=== PATIENT | female | born 1995 | race Caucasian/White ===

== ENCOUNTER 2019-11-10 05:55 | Inpatient (IN) | payer OTHER, SELFPAY ==
[2019-11-10] VITALS (143 sets, daily range): BP systolic 86–141; BP diastolic 39–96; PULSE 66–123; RESP 16–18; TEMP 36.2–37.1; O2SAT 89–100; BMI 33.8
--- NOTE | 2019-11-10 06:42 | WPDOBADMIT ---
Obstetrics - Admit Note Admission Note: record reviewed. No pertinent additions to the history and/or any subsequent changes in the physical findings that are not consistent with the expected course of the were found. Additions to the history and/or subsequent changes in the physical findings follow. None. cx /-2/arom clear/fhts reassuring
--- NOTE | 2019-11-10 06:43 | PM.IMHP ---
H&P: HPI History of Present Illness Chief complaint: Induction of Labor Narrative: Gabby Ellis is a 24 year old female 001 whose last menstrual period was 02/05/2019, EDC is 11/12/2019, presents at 39 and half weeks gestation for induction of labor. Her has been uncomplicated. She had an abnormal diabetic screen but her 3hour GTT was for over 4 normal. Her cervix is favorable Review of Systems Review of Systems: All systems reviewed & are unremarkable except as noted in HPI and below PMFSH Family History Family History Mother Hypertension Cervical cancer Father Hypertension Grandparent Breast cancer Colon cancer Ovarian cancer Grandparent Colon cancer Grandparent Congestive heart failure Social History Social History Substance use: never Spiritual care concerns: No Meds Home Medications and Allergies Home Medications Medication Instructions Recorded Confirmed Type PNV cmb#95-ferrous fumarate-FA 1 tablet PO DAILY 10/19/19 10/19/19 History [] ergocalciferol (vitamin D2) 50,000 unit PO WEEKLY 10/19/19 10/19/19 History [Vitamin D2] loratadine-pseudoephedrine 1 tablet PO DAILY 10/19/19 10/19/19 History [Claritin-D 24 Hour] Allergies Allergy/AdvReac Type Severity Reaction Status Date / Time No Known Allergies Allergy Verified 10/19/19 13:33 Vital Signs Vital Signs - 24 hr 11/10/19 06:37 Pulse Rate 107 H Blood Pressure 123/77 Exam Const: General: no acute distress Eyes: General: appearance normal, both eyes and all related structures Neck: Neck: supple and no JVD Thyroid: thyroid normal Resp: Effort & Inspection: normal respiratory effort Auscultation: clear to auscultation bilaterally Cardio: Rate: regular rate Rhythm: regular rhythm GI: Inspection: normal to inspection Auscultation: normal bowel sounds Other: Abdomen gravid the uterus is soft : General: Yes other (Cervix is 3/75%/-1/AROM clear. heart tones reassuring) External Female Exam: normal external appearance Skin: General skin exam: no rashes or lesions noted Extrem: General: normal to inspection and no edema Psych: Mental Status: mental status grossly normal Affect: normal affect Assessment and Plan Additional Plan Impression: Term Plan: Medical induction of labor. Spontaneous vaginal delivery is expected. She has an epidural candidate.
[2019-11-10 06:52] LABS: Basophils Percent Auto 0.3 % (0.2-1.2); Eosinophils Absolute Auto 0.1 K/mm3 (0-0.3); Hematocrit 38.5 % (37.0-47.0); Hemoglobin 12.3 g/dL (12.0-15.0); Immature Granulocyte Absolute 0.19 K/mm3 (0.00-0.031); Immature Granulocyte Percent A 1.7 % (0-0.5); Lymphocytes Absolute Auto 1.89 K/mm3 (0.9-3.2); Lymphocytes Percent Auto 16.5 % (18.3-44.2); Mean Corpuscular HGB Conc 31.9 g/dl (32-36); Mean Corpuscular Hemoglobin 29.4 pg (26-34); Mean Corpuscular Volume 91.9 fl (80-100); Monocytes Absolute Auto 0.9 K/mm3 (0.1-0.6); Monocytes Percent Auto 8.2 % (2.6-8.5); Neutrophils Absolute Auto 8.3 K/mm3 (1.3-6.7); Neutrophils Percent Auto 72.3 % (45.5-73.1); Platelet Count Result 194 k/mm3 (150-375); Red Blood Count 4.19 M/mm3 (4.2-5.4); Red Cell Distribution Width 14.3 % (11.5-14.5); White Blood Count 11.5 K/mm3 (4.5-10.0)
[2019-11-10] MEDS: LACTATED RINGERS 1,000 ML 125 ML IV CONT ×3 (07:10→13:33)
[2019-11-10] MEDS: ONDANSETRON INJ 4 MG/2 ML VIAL IV PUSH (08:52)
--- NOTE | 2019-11-10 08:58 | WPDANESEPPF ---
Anes - Initial Pre Proc Eval Date/Time: 11/10/19 08:58 Surgeon: Sanya Vallecillo MD Pre Op Diagnosis: Induction of Labor Patient Data Age: 24 Gender: F Height: Weight: Last Vital Signs Temp 37.1 C 11/10/19 07:40 Pulse 95 11/10/19 08:56 Resp 18 11/10/19 07:40 BP 119/73 11/10/19 08:56 Pulse Ox 100 11/10/19 08:55 Allergies Allergy/AdvReac Type Severity Reaction Status Date / Time No Known Allergies Allergy Verified 10/19/19 13:33 Home Medications Medication Instructions Recorded Confirmed Type PNV cmb#95-ferrous fumarate-FA 1 tablet PO DAILY 10/19/19 10/19/19 History [] ergocalciferol (vitamin D2) 50,000 unit PO WEEKLY 10/19/19 10/19/19 History [Vitamin D2] loratadine-pseudoephedrine 1 tablet PO DAILY 10/19/19 10/19/19 History [Claritin-D 24 Hour] Laboratory Tests 11/10/19 11/10/19 11/10/19 06:38 06:38 06:38 WBC 11.5 K/mm3 H K/mm3 (4.5-10.0) RBC 4.19 M/mm3 L M/mm3 (4.2-5.4) Hgb 12.3 g/dL g/dL (12.0-15.0) Hct 38.5 % % (37.0-47.0) MCV 91.9 fl fl (80-100) MCH 29.4 pg pg (26-34) MCHC 31.9 g/dl L g/dl (32-36) RDW 14.3 % % (11.5-14.5) Plt Count 194 k/mm3 k/mm3 (150-375) MPV 12.0 fl H fl (7.4-10.4) Immature Gran % (Auto) 1.7 % H % (0-0.5) Neut % (Auto) 72.3 % % (45.5-73.1) Lymph % (Auto) 16.5 % L % (18.3-44.2) [place] % (Auto) 8.2 % % (2.6-8.5) Eos % (Auto) 1.0 % % (0-4.4) Baso % (Auto) 0.3 % % (0.2-1.2) Lymph # (Auto) 1.89 K/mm3 K/mm3 (0.9-3.2) [place] # (Auto) 0.9 K/mm3 H K/mm3 (0.1-0.6) Eos # (Auto) 0.1 K/mm3 K/mm3 (0-0.3) Baso # (Auto) 0.0 K/mm3 K/mm3 (0.0-0.1) Abs Immat Gran (auto) 0.19 K/mm3 H K/mm3 (0.00-0.031) Absolute Neuts (auto) 8.3 K/mm3 H K/mm3 (1.3-6.7) Absolute Nucleated RBC 0.0 K/mm3 K/mm3 (0.0-0.012) Nucleated RBC % 0.0 % % (0.0-0.2) RPR Pending Blood Type A Positive Antibody Screen Negative Patient hx anesthesia problems: none Family hx anesthesia problems: none PMFSH Family History Family History Mother Hypertension Cervical cancer Father Hypertension Grandparent Breast cancer Colon cancer Ovarian cancer Grandparent Colon cancer Grandparent Congestive heart failure Social History Social History Smoking status: Never smoker Substance use: never Spiritual care concerns: No Anes - Eval Final PreProcedure Day of Procedure 11/10/19 08:58 Patient weight: obese Neurological: alert and oriented ASA classification: II Emergent: no Anesthetic plan: proceed Anesthesia type and monitoring: regional epidural and standard monitoring Informed Consent: The patient's anesthetic plan and its attendant risks and benefits were discussed with the patient/family/POA. Questions were solicited and answers provided to the satisfaction of the patient/family/POA.
--- NOTE | 2019-11-10 11:52 | P.PNOB_ITS ---
OB - PN: Subj Subjective Date/time seen: 11/10/19 11:52 Interval history: cx 7.5/100/-1 fhts ok OB - PN: Obj Data Labs CBC & Chem 7: 11/10/19 06:38 Labs: Laboratory Results - last 24 hr 11/10/19 11/10/19 06:38 06:38 WBC 11.5 H RBC 4.19 L Hgb 12.3 Hct 38.5 MCV 91.9 MCH 29.4 MCHC 31.9 L RDW 14.3 Plt Count 194 MPV 12.0 H Immature Gran % (Auto) 1.7 H Neut % (Auto) 72.3 Lymph % (Auto) 16.5 L [place] % (Auto) 8.2 Eos % (Auto) 1.0 Baso % (Auto) 0.3 Lymph # (Auto) 1.89 [place] # (Auto) 0.9 H Eos # (Auto) 0.1 Baso # (Auto) 0.0 Abs Immat Gran (auto) 0.19 H Absolute Neuts (auto) 8.3 H Absolute Nucleated RBC 0.0 Nucleated RBC % 0.0 Blood Type A Positive Antibody Screen Negative OB - PN A/P Time Spent With Patient Time: Total time spent is greater than 50% in coordination of care (as documented) at patient's floor/unit and/or counseling patient:
[2019-11-10] MEDS: METOCLOPRAMIDE HCL INJ 10 MG/2 ML VIAL IV PUSH (12:10)
--- NOTE | 2019-11-10 13:47 | PM.OBPRVD ---
OB - Delivery Note Procedure Delivery date: 11/10/19 Induction method: AROM Delivery augmentation: pitocin Delivery monitor: external FHT Route of delivery: Episiotomy description: None Laceration description: None Specimen: No Estimated blood loss (mL): 57 Anesthesia type: Epidural Disposition: floor [place] Baby Date of : 11/10/19 Time of : 13:40 Weeks of gestation at delivery: 39 Infant gender: Male presentation: vertex position: Right Occiput Anterior Placenta delivery description: Spontaneous cord vessel description: 3 Vessels score one minute: 9 score five minutes: 9
[2019-11-10] MEDS: IBUPROFEN 600 MG TABLET PO (15:40)
[2019-11-10] MEDS: WITCH HAZEL 40 PADS 1 PAD TOPICAL (15:41)
[2019-11-10] MEDS: ACETAMINOPHEN 325 MG TABLET 650 MG PO (19:07)
[2019-11-11] MEDS: IBUPROFEN 600 MG TABLET PO ×3 (00:26→16:33)
[2019-11-11 05:34] LABS: Hematocrit 34.3 % (37.0-47.0)
--- NOTE | 2019-11-11 07:01 | PM.OBPNVD ---
OB - PN: Subj Subjective Date/time seen: 11/11/19 07:01 Interval history: cx 7.5/100/-1 fhts ok Patient comments: no complaints and pain well controlled baby status: doing well and nursing well OB - PN: Obj Data Labs CBC & Chem 7: 11/11/19 04:42 Labs: Laboratory Results - last 24 hr 11/10/19 11/11/19 06:38 04:42 Hgb 11.0 L Hct 34.3 L Blood Type A Positive Antibody Screen Negative OB - PN A/P Plan day: 1 Plan: routine care Time Spent With Patient Time: Total time spent is greater than 50% in coordination of care (as documented) at patient's floor/unit and/or counseling patient: Time with patient: less than 15 minutes Review of Systems Review of Systems: All systems reviewed & are unremarkable except as noted in HPI and below Exam Const: General: no acute distress Eyes: General: appearance normal, both eyes and all related structures Neck: Neck: supple and no JVD Thyroid: thyroid normal Resp: Effort & Inspection: normal respiratory effort Auscultation: clear to auscultation bilaterally Cardio: Rate: regular rate Rhythm: regular rhythm GI: Inspection: non-distended GI Palp: Yes Soft to palpation, No Tenderness to palpation present (GI) and No Guarding due to palpation present (GI) Auscultation: normal bowel sounds : General: Yes bladder normal to palpation External Female Exam: normal external appearance Speculum Exam - Vagina: normal vaginal discharge and No vaginal bleeding Speculum Exam - Cervix: nontender Bimanual exam- vagina & uterus: bladder normal to palpation and No Cervical tenderness present OB/external & speculum: No vaginal bleeding Skin: General skin exam: no rashes or lesions noted Extrem: General: normal to inspection and no edema Psych: Mental Status: mental status grossly normal Affect: normal affect
[2019-11-11 07:55] VITALS: BP 118/61; PULSE 86; RESP 16; TEMP 37.3; O2SAT 98
[2019-11-11] MEDS: MULTIVIT/MIN/PREN/FOL AC/IRON TABLET 1 TAB PO (10:22)
[2019-11-11 10:48] LABS: Rapid Plasma Reagin Non-Reactive (NonReactive)
--- NOTE | 2019-11-11 11:00 | PC.NURSE ---
Consulted with patient, mother states is sleepy and has difficulties waking and latching. Reviewed infant feeding cues, frequencies, duration of feedings, feeding elimination flow sheet, and signs of adequate intake. Demonstrated stimulation techniques to wake infant for feeding. Assisted with to breast. Reviewed positioning/alignment in cross cradle, holding breast in U hold and guided asymmetrical latch on. was unable to latch correctly. Infant keeps tongue up and does not drop to allow correct latch. Discussed to allow infant to suck on a clean finger for a few minutes before latching to assist with tongue training to drop tongue. Several attempts made before was able to latch correctly. Once on, nursed eagerly, with steady draws and frequent swallowing noted. Reviewed signs of a correct latch, effective nursing and suck swallow ratio. Infant was able to maintain latch without discomfort to mother. Nipple care reviewed. Instructed to stimulate to keep awake and nursing effectively. Instructed mother to call out for RN assistance if she is unable to latch for feeding or she has discomfort with nursing. Instructed feeding should be initiated three hours from start of last feeding or if feeding cues are noted before. Mother voiced understanding of information shared.
--- NOTE | 2019-11-11 14:10 | PC.NURSE ---
Mother called out for observation to make sure latch was correct. Consulted with patient, mother states is sleepy and has difficulties waking and latching. Mother is able to independently latch with appropriate positioning/alignment in football. Once on, nursed eagerly, with steady draws and frequent swallowing noted. Reviewed signs of a correct latch, effective nursing and suck swallow ratio. was able to maintain latch without discomfort to mother. Nipple care reviewed. Instructed to stimulate to keep awake and nursing effectively. Instructed mother to call out for RN assistance if she is unable to latch infant for feeding or she has discomfort with nursing. Instructed feeding should be initiated three hours from start of last feeding or if feeding cues are noted before. Mother voiced understanding of information shared.
[2019-11-11 20:10] VITALS: BP 127/80; PULSE 77; PULSE 86; RESP 16; TEMP 36.8; O2SAT 98
--- NOTE | 2019-11-12 07:31 | PM.OBPNVD ---
OB - PN: Subj Subjective Date/time seen: 11/12/19 07:31 Patient comments: no complaints and pain well controlled baby status: doing well and nursing well OB - PN: Obj Data Labs CBC & Chem 7: 11/11/19 04:42 Labs: Laboratory Results - last 24 hr 11/10/19 06:38 RPR Non-reactive OB - PN A/P Plan day: 2 Plan: routine care, discharge home and follow up 6 weeks Time Spent With Patient Time: Total time spent is greater than 50% in coordination of care (as documented) at patient's floor/unit and/or counseling patient: Time with patient: less than 15 minutes Review of Systems Review of Systems: All systems reviewed & are unremarkable except as noted in HPI and below Exam GI: Inspection: normal to inspection Percussion: Yes normal to percussion Auscultation: normal bowel sounds Other: fundus firm : Bimanual exam- vagina & uterus: other (flow light)
--- NOTE | 2019-11-12 07:32 | P.DS_ITS ---
DS: Diagnosis Admitting Diagnosis Admitting Diagnosis: term DS: Summary Time Spent with Patient Time attestation: Total time spent providing and/or coordinating discharge services: Exam Const: General: no acute distress Eyes: General: appearance normal, both eyes and all related structures Neck: Neck: supple and no JVD Thyroid: thyroid normal Resp: Effort & Inspection: normal respiratory effort Auscultation: clear to auscultation bilaterally Cardio: Rate: regular rate Rhythm: regular rhythm GI: Inspection: non-distended GI Palp: Yes Soft to palpation, No Tenderness to palpation present (GI) and No Guarding due to palpation present (GI) A uscultation: normal bowel sounds : General: Yes bladder normal to palpation External Female Exam: normal external appearance Speculum Exam - Vagina: normal vaginal discharge and No vaginal bleeding Speculum Exam - Cervix: nontender Bimanual exam- vagina & uterus: bladder normal to palpation and No Cervical tenderness present OB/external & speculum: No vaginal bleeding Skin: General skin exam: no rashes or lesions noted Extrem: General: normal to inspection and no edema Psych: Mental Status: mental status grossly normal Affect: normal affect DS: Data Data Completed and Pending Labs on day of discharge: Labs from last 24 hours 11/10/19 06:38 RPR Non-reactive Discharge Plan Discharge Attending physician on discharge: Sanya Vallecillo Discharging Clinician: Sanya Vallecillo Patient Disposition: Home, Self-Care Activity: may shower, no straining, may drive after 2 weeks and pelvic rest Diet: heart healthy Wound Care Instructions: follow printed instructions Patient Instructions: Antibiotic Form Stand Alone Forms: General Discharge Information Follow-up/Referrals: Sanya Vallecillo MD [Physician] - Discharge Medications: Continued PNV cmb#95-ferrous fumarate-FA [] 28 mg iron- 800 mcg Tablet 1 tablet PO DAILY RF: 0 loratadine-pseudoephedrine [Claritin-D 24 Hour] 10-240 mg Tablet Extended Release 24 Hr 1 tablet PO DAILY RF: 0 ergocalciferol (vitamin D2) [Vitamin D2] 1,250 mcg (50,000 unit) Capsule 50,000 unit PO WEEKLY RF: 0 Date of admission: 11/10/19 05:55 Primary Care Provider: UNKNOWN,DOCTOR Admitting Provider: Sanya Vallecillo Attending physician on admission: Sanya Vallecillo
[2019-11-12 08:00] VITALS: BP 129/67; PULSE 98; RESP 16; TEMP 36.8
[2019-11-14 11:09] VITALS: BP 126/78; PULSE 91; RESP 16; TEMP 37.2
== END 2019-11-12 12:15 | disposition home or self-care (01) | DRG 807 ==
LOC: ANHLDR 06:38 → ANHOB2 16:58
PROVIDERS: Admitting Provider Obstetrics & Gynecology; Visit Provider Obstetrics & Gynecology
DX: O80 Encounter for full-term uncomplicated delivery (principal); Z37.0 Single live birth; Z23 Encounter for immunization; Z3A.39 39 weeks gestation of pregnancy
CPT/HCPCS: 36415; 85014; 85018; 85025; 86592; 86850; 86900; 86901; A9270; J2405; J2590; J2765; J2795; J7120

== ENCOUNTER 2021-06-16 04:33 | Inpatient (IN) | payer OTHER, SELFPAY ==
[2021-06-16] VITALS (77 sets, daily range): BP systolic 81–150; BP diastolic 30–91; PULSE 66–118; RESP 14–16; TEMP 36.3–36.7; O2SAT 96–100; BMI 35.8
--- NOTE | 2021-06-16 04:33 | LDADM ---
This patient, Gabby Ellis, was admitted to Labor/Delivery/Recovery 106 on 06/16/21 at 04:33. Plans for labor, pain management and were discussed with patient. Patient/family oriented to hospital policies and general routines including ID bracelet, bed and alarms, visiting hours, pain management, procedures, bathroom and other care routines, personal items, smoking policy, room service/diet and guest tray routines, infant security routines, and visiting hours. Patient/Family are encouraged to report perceived risks to care and to ask questions if they do not understand what they are told or what they should do. See OBIX for further documentation.
[2021-06-16] MEDS: LACTATED RINGERS 1,000 ML 125 ML IV CONT (08:53)
[2021-06-16 08:54] LABS: Basophils Percent Auto 0.3 % (0.2-1.2); Eosinophils Absolute Auto 0.1 K/mm3 (0-0.3); Eosinophils Percent Auto 0.7 % (0-4.4); Hematocrit 37.6 % (37.0-47.0); Hemoglobin 12.1 g/dL (12.0-15.0); Immature Granulocyte Absolute 0.07 K/mm3 (0.00-0.031); Immature Granulocyte Percent A 0.6 % (0-0.5); Lymphocytes Absolute Auto 1.29 K/mm3 (0.9-3.2); Lymphocytes Percent Auto 11.2 % (18.3-44.2); Mean Corpuscular HGB Conc 32.2 g/dl (32-36); Mean Corpuscular Hemoglobin 29.6 pg (26-34); Mean Corpuscular Volume 91.9 fl (80-100); Mean Platelet Volume 11.5 fl (7.4-10.4); Monocytes Absolute Auto 0.8 K/mm3 (0.1-0.6); Neutrophils Absolute Auto 9.2 K/mm3 (1.3-6.7); Neutrophils Percent Auto 80.2 % (45.5-73.1); Platelet Count Result 204 k/mm3 (150-375); Red Blood Count 4.09 M/mm3 (4.2-5.4); Red Cell Distribution Width 13.8 % (11.5-14.5); White Blood Count 11.5 K/mm3 (4.5-10.0)
--- NOTE | 2021-06-16 09:00 | WPDHPUPDATE1 ---
History and Physical Update Update Date/Time: 06/16/21 09:00 25 yo at 39w2d who presents in labor. Pt reports regular contractions that started yesterday. She denies any vaginal bleeding or leakage of fluid. She endorses good FM. Her pregnanacy has been uncomplicated thus far. History and Physical has been reviewed, including an updated exam of the patient. There are NO changes in the patient's condition. Risks, benefits, and alternatives have been discussed and questions answered. Patient agrees to proceed with procedure. A/P: 25 yo at 39w2d admit to L&D routine admission orders GBS neg Rh+ cvx changed from 2 to 4cm FHT cat 1 regular contractions on toco continuous EFM will plan for AROM for augmentation
[2021-06-16] MEDS: ONDANSETRON INJ 4 MG/2 ML VIAL IV PUSH (09:17)
[2021-06-16] MEDS: ePHEDrine sulfate INJ 50 MG/ML AMPUL IV PUSH (10:05)
[2021-06-16] MEDS: METOCLOPRAMIDE HCL INJ 10 MG/2 ML VIAL IV PUSH (10:09)
[2021-06-16] MEDS: OXYTOCIN 30 UNITS/NS 500 ML 30 UNITS/500 ML BAG IV CONT (11:01)
--- NOTE | 2021-06-16 13:03 | P.PCNOB_ITS ---
OB - Delivery Note Procedure Procedure: Patient pushed for a spontaneous vaginal delivery. A nuchal cord x2 and body cord were noted. The fetus was delivered through and reduced on the perineum. The fetus was delivered atraumatically and placed on the maternal abdomen. The cord was clamped and cut after 1 minute of life. The cord was double clamped and cut and a segment of cord was collected for cord gases. Cord blood was collected for blood type and Coomb's testing. The placenta delivered spontaneously and was noted to be intact. The perineum was inspected and there were no lacerations noted. The uterus was firm and good hemostasis was noted. The patient and fetus were stable in the delivery room. Intrapartal events: None Induction method: none Delivery augmentation: pitocin Delivery monitor: external FHT Route of delivery: Episiotomy description: None Laceration Description: None Specimen: No Quantitative Blood Loss (ml): 150 Anesthesia type: Epidural Disposition: floor () Complications: No immediate complications [place] Baby Date of : 06/16/21 Time of : 12:55 Weeks of gestation at delivery: 39 Infant gender: Male Weight (pounds): 8 Weight (ounces): 8 presentation: vertex position: Left Occiput Anterior Placenta delivery description: Spontaneous cord vessel description: 3 Vessels, Nuchal Cord (x2) and Around Body x1 score one minute: 8 score five minutes: 9
--- NOTE | 2021-06-16 19:31 | PC.NURSE ---
1706-Patient transferred to post room #285 via wheelchair. Support person present. Oriented to unit, room, information board, rooming in, admission packet and security measures. Patient verbalizes understanding.
[2021-06-16] MEDS: IBUPROFEN 600 MG TABLET PO (19:40)
[2021-06-17 05:30] VITALS: BP 112/69; PULSE 85; RESP 15; TEMP 36.6; O2SAT 98
[2021-06-17 05:34] LABS: Hematocrit 33.9 % (37.0-47.0); Hemoglobin 11.1 g/dL (12.0-15.0)
[2021-06-17 08:15] VITALS: BP 113/71; PULSE 82; RESP 16; TEMP 37; O2SAT 99
--- NOTE | 2021-06-17 08:24 | PM.OBDSVD ---
DS: Admitting Diagnosis Admitting Diagnosis intrauterine at term labor OB - DS: Summary OB Procedures : None OB Procedures Intrapartum: Spontaneous Vag Delivery OB Procedures: : None Status at Discharge Functional status at discharge: independent ambulation Overall status at discharge: patient is back to baseline Time Spent with Patient Time attestation: Total time spent providing and/or coordinating discharge services: Time spent: Less than 30 minutes Exam Const: General: comfortable and no acute distress Resp: Effort & Inspection: normal respiratory effort Auscultation: clear to auscultation bilaterally Cardio: Rate: regular rate GI: GI Palp: Yes Soft to palpation Auscultation: normal bowel sounds Other: Fundus firm below umbilicus Psych: Appearance: grossly normal Mental Status: mental status grossly normal Affect: normal affect DS: Data Data Completed and Pending Labs on day of discharge: Labs from last 24 hours 06/17/21 06/16/21 06/16/21 05:28 08:44 08:44 WBC RBC Hgb 11.1 L Hct 33.9 L MCV MCH MCHC RDW Plt Count MPV Immature Gran % (Auto) Neut % (Auto) Lymph % (Auto) [place] % (Auto) Eos % (Auto) Baso % (Auto) Lymph # (Auto) [place] # (Auto) Eos # (Auto) Baso # (Auto) Abs Immat Gran (auto) Absolute Neuts (auto) Absolute Nucleated RBC Nucleated RBC % RPR Pending Blood Type A Positive Antibody Screen Negative 06/16/21 08:44 WBC 11.5 H RBC 4.09 L Hgb 12.1 Hct 37.6 MCV 91.9 MCH 29.6 MCHC 32.2 RDW 13.8 Plt Count 204 MPV 11.5 H Immature Gran % (Auto) 0.6 H Neut % (Auto) 80.2 H Lymph % (Auto) 11.2 L [place] % (Auto) 7.0 Eos % (Auto) 0.7 Baso % (Auto) 0.3 Lymph # (Auto) 1.29 [place] # (Auto) 0.8 H Eos # (Auto) 0.1 Baso # (Auto) 0.0 Abs Immat Gran (auto) 0.07 H Absolute Neuts (auto) 9.2 H Absolute Nucleated RBC 0.0 Nucleated RBC % 0.0 RPR Blood Type Antibody Screen Discharge Plan Discharge Discharging Clinician: sanjeev Patient Disposition: Home, Self-Care Activity: as tolerated and pelvic rest Diet: regular Patient Instructions: Antibiotic Form, Vaginal Delivery (DC) Stand Alone Forms: General Discharge Information Follow-up/Referrals: Sanya Vallecillo MD [Physician] - 6 Weeks Discharge Medications: New ibuprofen 600 mg Tablet 600 mg PO Q6H PRN (Reason: Cramping) Qty: 30 RF: 0 acetaminophen [Mapap (acetaminophen)] 325 mg Tablet 650 mg PO Q6H PRN (Reason: Mild Pain (1-3) Or Headache) Qty: 30 RF: 0 Continued PNV cmb#95-ferrous fumarate-FA [] 28 mg iron- 800 mcg Tablet 1 tablet PO DAILY RF: 0 loratadine-pseudoephedrine [Claritin-D 24 Hour] 10-240 mg Tablet Extended Release 24 Hr 1 tablet PO DAILY RF: 0 escitalopram oxalate 20 mg Tablet 20 mg PO DAILY RF: 0 Date of admission: 06/16/21 04:33 Primary Care Provider: PHYSICIAN,JEWEL HOLE GAUGER Admitting Provider: Sanya Vallecillo Attending physician on admission: Sanya Vallecillo Condition: Stable
--- NOTE | 2021-06-17 09:30 | PC.NURSE ---
Mother called out for assist with feeding, reporting tenderness to right more than left with feedings. Infant is unable to freely thrust tongue past gum ridge and top lip frenulum is thick, is able to flange both lips. Skin is intact on both nipples, redness noted and no bruising. Nipple care reviewed of lanolin after feedings, warm compresses as needed. Discussed how the tongue frenulum may impact latch. Tongue frenulum is thin advised it may stretch within a few days. Reviewed infant feeding cues, frequencies, duration of feedings, feeding elimination flow sheet, and signs of adequate intake. Demonstrated stimulation techniques to wake infant for feeding. Assisted with infant to breast. Reviewed positioning/alignment in cross cradle, holding breast in ?U? hold and guided asymmetrical latch on. Discussed rational for each. Infant able to latch correctly. Reviewed signs of a correct latch, effective nursing and suck swallow ratio. nursed eagerly, with steady draws and frequent swallowing noted. Reviewed the difference of effective vs ineffective nursing. Suggested mother stimulate while feeding to increase stimulation, increase intake and to assist with maintaining deep latch. would slip to shallow latch, mother reports tenderness and clicking noted. Demonstrated how to adjust latch more deeply while feeding. Mother reports she can feel change in latch and has no tenderness and less clicking noted. Advised to hold breast during entire feeding to keep deep latch. Mother questions if she should have the tongue and lip clipped . Advised to discuss with her ICP at fist visit, if mother is unable to feed without discomfort to call ICP and not wait for 1 week visit.
[2021-06-17] MEDS: MULTIVIT/MIN/PREN/FOL AC/IRON TABLET 1 TAB PO (09:47)
[2021-06-17] MEDS: DOCUSATE SODIUM 100 MG CAPSULE PO (09:47)
[2021-06-17] MEDS: ESCITALOPRAM OXALATE 10 MG TABLET 20 MG PO (09:47)
[2021-06-17] MEDS: IBUPROFEN 600 MG TABLET PO ×2 (09:48→17:43)
[2021-06-17 11:54] VITALS: BP 119/61; PULSE 100; RESP 16; TEMP 37.2; O2SAT 98
[2021-06-17 19:45] VITALS: BP 137/90; PULSE 80; RESP 16; TEMP 37.1; O2SAT 98
[2021-06-18] MEDS: IBUPROFEN 600 MG TABLET PO (03:35)
[2021-06-18 07:55] VITALS: BP 129/84; PULSE 76; RESP 18; TEMP 37.3; O2SAT 98
--- NOTE | 2021-06-18 07:57 | P.DS_ITS ---
DS: Admitting Diagnosis Admitting Diagnosis term iup DS: Summary Hospital Course Hospital Course: Patient was admitted in active labor and underwent spontaneous vaginal delivery. Her course was unremarkable she remained afebrile. She was up, voiding without difficulty, ambulating, generally without complaints. Time Spent with Patient Time attestation: Total time spent providing and/or coordinating discharge services: Exam Const: General: no acute distress Eyes: General: appearance normal, both eyes and all related structures Neck: Neck: supple and no JVD Thyroid: thyroid normal Resp: Effort & Inspection: normal respiratory effort Auscultation: clear to auscultation bilaterally Cardio: Rate: regular rate Rhythm: regular rhythm GI: Inspection: non-distended GI Palp: Yes Soft to palpation, No Tenderness to palpation present (GI) and No Guarding due to palpation present (GI) Auscultation: normal bowel sounds : General: Yes bladder normal to palpation External Female Exam: normal external appearance Speculum Exam - Vagina: normal vaginal discharge and No vaginal bleeding Speculum Exam - Cervix: nontender Bimanual exam- vagina & uterus: bladder normal to palpation and No Cervical tenderness present OB/external & speculum: No vaginal bleeding Skin: General skin exam: no rashes or lesions noted Extrem: General: normal to inspection and no edema Psych: Mental Status: mental status grossly normal Affect: normal affect Discharge Plan Discharge Discharging Clinician: sanjeev Patient Disposition: Home, Self-Care Activity: as tolerated and pelvic rest Diet: regular Patient Instructions: Antibiotic Form, Vaginal Delivery (DC) Stand Alone Forms: General Discharge Information Follow-up/Referrals: Sanya Vallecillo MD [Physician] - 6 Weeks Discharge Medications: New acetaminophen [Mapap (acetaminophen)] 325 mg Tablet 650 mg PO Q6H PRN (Reason: Mild Pain (1-3) Or Headache) Qty: 30 RF: 0 ibuprofen 600 mg Tablet 600 mg PO Q6H PRN (Reason: Cramping) Qty: 30 RF: 0 Continued PNV cmb#95-ferrous fumarate-FA [] 28 mg iron- 800 mcg Tablet 1 tablet PO DAILY RF: 0 loratadine-pseudoephedrine [Claritin-D 24 Hour] 10-240 mg Tablet Extended Release 24 Hr 1 tablet PO DAILY RF: 0 escitalopram oxalate 20 mg Tablet 20 mg PO DAILY RF: 0 Date of admission: 06/16/21 04:33 Primary Care Provider: PHYSICIAN,SWE[employer] Admitting Provider: Sanya Vallecillo Attending physician on admission: Sanya Vallecillo Condition: Stable
--- NOTE | 2021-06-18 07:58 | PM.OBPNVD ---
OB - PN: Subj Subjective Date/time seen: 06/18/21 07:58 Patient comments: no complaints and pain well controlled baby status: doing well and nursing well OB - PN: Obj Data Labs CBC & Chem 7: 06/17/21 05:28 OB - PN A/P Plan day: 2 Plan: routine care, discharge home and follow up 6 weeks Time Spent With Patient Time: Total time spent is greater than 50% in coordination of care (as documented) at patient's floor/unit and/or counseling patient: Time with patient: less than 15 minutes Review of Systems Review of Systems: All systems reviewed & are unremarkable except as noted in HPI and below Exam Const: General: no acute distress Eyes: General: appearance normal, both eyes and all related structures Neck: Neck: supple and no JVD Thyroid: thyroid normal Resp: Effort & Inspection: normal respiratory effort Auscultation: clear to auscultation bilaterally Cardio: Rate: regular rate Rhythm: regular rhythm GI: Inspection: non-distended GI Palp: Yes Soft to palpation, No Tenderness to palpation present (GI) and No Guarding due to palpation present (GI) Auscultation: normal bowel sounds : General: Yes bladder normal to palpation External Female Exam: normal external appearance Speculum Exam - Vagina: normal vaginal discharge and No vaginal bleeding Speculum Exam - Cervix: nontender Bimanual exam- vagina & uterus: bladder normal to palpation and No Cervical tenderness present OB/external & speculum: No vaginal bleeding Skin: General skin exam: no rashes or lesions noted Extrem: General: normal to inspection and no edema Psych: Mental Status: mental status grossly normal Affect: normal affect
[2021-06-18] MEDS: DOCUSATE SODIUM 100 MG CAPSULE PO (08:47)
[2021-06-18] MEDS: MULTIVIT/MIN/PREN/FOL AC/IRON TABLET 1 TAB PO (08:47)
[2021-06-18] MEDS: ACETAMINOPHEN 325 MG TABLET 650 MG PO (08:47)
--- NOTE | 2021-06-18 10:00 | PC.NURSE ---
Consult with pt., mother reports has been eagerly latching most feedings. Mother has less tenderness with previous assist with deep latch and continues to latch deeply. Mother reports she will contact her ICP today for assist with tongue and lip tie evaluation. Discussed to keep accurate records of feeding/elimination and offer EBM as needed. Observed mother is able to independently latch infant with appropriate positioning/alignment. She denies any nipple discomfort, is feeding as required and waking to feed if needed. has had at least 8 effective feedings in the past 24 hours, and is currently meeting outcomes for weight, output, jaundice and feeding frequencies. Mother states she feels confident to continue effective at home. Reviewed transition to breast milk, signs of adequate intake, and engorgement/relief. Instructed to call ICP if intake/output less than required. Reviewed regular medications mother is taking. Information provided per [facility]. Reviewed community resources on the [facility] website and in the Mom/Baby guide. Information on outpatient services provided. Mother has no further questions at this time.
[2021-06-18 10:30] LABS: Rapid Plasma Reagin Non-Reactive (NonReactive)
[2021-06-19 08:44] VITALS: BP 135/87; PULSE 79; RESP 20; TEMP 36.9; O2SAT 99
== END 2021-06-18 16:10 | disposition home or self-care (01) | DRG 807 ==
LOC: ANHOB2 06-18 10:29 → ANHLDR 06-20 08:42 → ANHOB2 06-20 08:42
PROVIDERS: Admitting Provider Student in an Organized Health Care Education/Training Program; Visit Provider Student in an Organized Health Care Education/Training Program
DX: O69.81X0 Labor and delivery complicated by cord around neck, without compression, not applicable or unspecified (principal); Z37.0 Single live birth; Z3A.39 39 weeks gestation of pregnancy; O69.82X0 Labor and delivery complicated by other cord entanglement, without compression, not applicable or unspecified; O77.0 Labor and delivery complicated by meconium in amniotic fluid
CPT/HCPCS: 36415; 85014; 85018; 85025; 86592; 86850; 86900; 86901; A9270; J2405; J2590; J2765; J2795; J7120

== ENCOUNTER 2021-10-04 16:02 | Emergency (ER) | payer OTHER, SELFPAY ==
[2021-10-04 16:31] VITALS: BP 147/94; PULSE 100; RESP 18; TEMP 36.6; O2SAT 99
[2021-10-04 17:15] VITALS: BP 147/94; PULSE 79; RESP 18; TEMP 36.6; O2SAT 100
--- NOTE | 2021-10-04 17:38 | ED.GENADULT ---
HPI - General Adult General Chief complaint: Eye Problems Stated complaint: eye pain Time Seen by Provider: 10/04/21 17:17 Source: patient Mode of arrival: ambulatory Limitations: no limitations History of Present Illness HPI narrative: Patient presents for evaluation of right eye irritation, redness, tearing, pain since last night. She indicates she was attempting to remove a contact when she believes she scratched her right eye. She was able to remove the contact successfully. She has some photophobia. She reports blurred vision but denies any visual disturbance otherwise. She is not diabetic. No additional complaints or concerns. Related Data Home Medications Medication Instructions Recorded Confirmed PNV cmb#95-ferrous fumarate-FA 1 tablet PO DAILY 10/19/19 06/03/21 [] loratadine-pseudoephedrine 1 tablet PO DAILY 10/19/19 06/03/21 [Claritin-D 24 Hour] escitalopram oxalate 20 mg PO DAILY 06/03/21 06/03/21 Allergies Allergy/AdvReac Type Severity Reaction Status Date / Time No Known Allergies Allergy Verified 11/15/19 13:52 Review of Systems Review of Systems: CONSTITUTIONAL: Denies fever, chills, or sweats. EYES: Reports right eye irritation, pain and tearing ENT: Denies rhinorrhea, congestion, sore throat, or otalgia. CARDIOVASCULAR: Denies chest pain, palpitations, or edema. RESPIRATORY: Denies cough or dyspnea. GASTROINTESTINAL: Denies abdominal pain, nausea, vomiting, or diarrhea. GENITOURINARY: Denies dysuria or hematuria. SKIN: Denies rash or itching. MUSCULOSKELETAL: Denies back pain, joint pain, or myalgia. NEUROLOGIC: Denies headache, numbness, dizziness, or weakness. PSYCHIATRIC: Denies anxiety or depression. [facility] Past Medical History Medical History (Updated 10/04/21 @ 18:22 by ENRICO Garcia, BENJAMIN) No pertinent past medical history Surgical History Surgical History No pertinent past surgical history Family History Family History Mother Hypertension Cervical cancer Father Hypertension Grandparent Breast cancer Colon cancer Ovarian cancer Grandparent Colon cancer Grandparent Congestive heart failure Social History Social History Smoking status: Never smoker Substance use: never Gender identity (if verbalized by the patient): Female Spiritual care concerns: No Exam Narrative: GENERAL: Well-appearing, well-nourished, and in no acute distress. HEAD: Normocephalic, atraumatic. EYES: PERRLA and EOMI. Right conjunctival injection with associated tearing. Evaluated with Wood's Lamp-dye uptake noted in right eye at 4-5 o'clock position overlying the iris ENT: Nares clear, no rhinorrhea or epistaxis. Mucous membranes moist. Oropharynx without tonsillar hypertrophy exudate or other lesions. Bilateral TMs pearly valencia nonbulging NECK: Supple. No adenopathy or masses. No carotid bruits or JVD CHEST: Clear to auscultation. No respiratory distress. No wheezes rales or rhonchi HEART: Regular rate and rhythm. No murmur heard. Normal peripheral pulses. ABDOMEN: Soft, nontender, nondistended, normal active bowel sounds. EXTREMITIES: Normal range of motion. No edema. SKIN: Warm, dry, no rash. NEURO: No focal deficits. Alert and oriented x3. PSYCH: Normal mood and affect. Course Course Emergency Course: This is a 26-year-old female who presented with complaints of right eye irritation after scratching her eye last night. She was evaluated with Cerna lamp and there was an area of dye uptake consistent with coreal abrasion. There was no retained foreign body visualized and patient indicates that she did remove the entire contact last night successfully. We will discharge her with a prescription for erythromycin. Due to the holiday she is unsure which pharmacy is still open. We
== END 2021-10-04 18:38 | disposition home or self-care (01) ==
PROVIDERS: Emergency Provider Nurse Practitioner
DX: S05.01XA Injury of conjunctiva and corneal abrasion without foreign body, right eye, initial encounter (principal); X58.XXXA Exposure to other specified factors, initial encounter
CPT/HCPCS: 99283

== ENCOUNTER 2022-12-05 07:42 | Outpatient (CLI) | payer OTHER, SELFPAY ==
--- NOTE | ~2022-12-05 | US_ITS ---
US abdomen limited 12/05/2022 08:13 Indication: Right upper quadrant pain Procedure: High-resolution Limited ultrasound of the abdomen. Comparison: No prior studies for comparison. Findings: Pancreas is partially obscured by bowel gas. No significant abnormality in the visualized p ancreas. There are 2 subcapsular hyperechoic masses in the liver measuring 2.7 and 1.8 cm respectivel y. Recommend correlation with dynamic contrast-enhanced CT or MRI for further assessment. There is no rmal directional flow in the portal vein. Gallbladder is normal without stones, gallbladder wall thic kening or pericholecystic fluid. Common bile duct measures 4 mm. Impression: 1: Subcapsular hyperechoic masses of the liver largest measuring 2.7 cm. In the absence of known safia gnancy these are likely benign hemangiomas, although further evaluation with dynamic contrast-enhance d CT or MRI is recommended. Reviewed, dictated and finalized at location B. BALL COACH Impression: 1: Subcapsular hyperechoic masses of the liver largest measuring 2.7 cm. In the absence of known malignancy these are likely benign hemangiomas, although furt her evaluation with dynamic contrast-enhanced CT or MRI is recommended.
== END 2022-12-05 07:43 | disposition home or self-care (01) ==
PROVIDERS: PCP Physician Assistant Medical; Visit Provider Nurse Practitioner Family
DX: R10.11 Right upper quadrant pain (principal); R11.0 Nausea; R16.0 Hepatomegaly, not elsewhere classified
CPT/HCPCS: 76705

== ENCOUNTER 2022-12-12 15:05 | Outpatient (CLI) | payer OTHER, SELFPAY ==
--- NOTE | ~2022-12-12 | CT_ITS ---
EXAMINATION: CT abdomen pelvis w con INDICATION: Liver masses on ultrasound TECHNIQUE: Computed tomographic images of the abdomen and pelvis were obtained after the administrati on of 100 cc of Omnipaque 350 intravenous contrast. The dose-length product (DLP) was 764.46 mGy-cm. Automated exposure control and iterative reconstruction technique were employed. COMPARISON: Ultrasound, 12/05/2022 FINDINGS: Minimal dependent atelectasis is present in the lung bases. The heart size is normal. There are two masses in the right hepatic lobe with interrupted peripheral nodular enhancement, consistent with hemangiomas. One measures 1.5 cm and the other 3 cm. No suspicious liver mass is identified. Th e spleen, pancreas, gallbladder, and adrenal glands are normal. The kidneys are unremarkable. No path ologically enlarged abdominal or pelvic lymph nodes are identified. No free intraperitoneal gas or ev idence of bowel obstruction. IMPRESSION: 1. Benign liver hemangiomas corresponding to the masses in question on recent ultrasound. Reviewed, dictated and finalized at location F. IVING SPECIALIST IMPRESSION: 1. Benign liver hemangiomas corresponding to the masses in question on recent u ltrasound.
== END 2022-12-12 15:06 | disposition home or self-care (01) ==
PROVIDERS: PCP Physician Assistant Medical; Visit Provider Nurse Practitioner Family
DX: R16.0 Hepatomegaly, not elsewhere classified (principal); D18.09 Hemangioma of other sites
CPT/HCPCS: 74177; Q9967

== ENCOUNTER 2023-04-30 07:41 | Outpatient (CLI) | payer OTHER, SELFPAY | END 2023-04-30 07:42 | disposition home or self-care (01) | LOC: ANHAUDASC 07:41 | PROVIDERS: PCP Physician Assistant Medical; Visit Provider Otolaryngology | DX: H93.A2 Pulsatile tinnitus, left ear (principal) | CPT/HCPCS: 92552; 92556; 92567 ==

== ENCOUNTER 2023-06-09 09:26 | Outpatient (CLI) | payer OTHER, SELFPAY ==
--- NOTE | ~2023-06-09 | CT_ITS ---
CT ANGIOGRAM HEAD History: Left pulsatile tinnitus. Technique: Axial noncontrast imaging of the brain was performed. Serial spiral axial images through he head were then obtained during arterial phase IV injection of 100 cc of Omnipaque 350. 3-D postpro cessing and MIP images were then reconstructed on the remote workstation. Dose reduction technique wa s used on this scan by utilizing automated exposure control and iterative reconstruction technique. [facility] dose-length product (DLP) was 1123.86 mGy-cm. Findings: Axial noncontrast imaging of the brain is unremarkable. No intracranial hemorrhage, mass le lashay, or acute infarct identified. Ventricles and subarachnoid spaces are unremarkable. Snyder-white di fferentiation is maintained. The visualized paranasal sinuses and mastoid air cells are clear. Distal vertebral arteries, basilar artery, and posterior cerebral arteries are patent. Distal interna l carotid arteries, middle cerebral arteries, and anterior cerebral arteries are patent. No large ves estephania occlusion. No stenosis or aneurysm. Impression: No significant abnormality seen. Reviewed, dictated and finalized at location . Impression: No significant abnormality seen.
== END 2023-06-09 09:27 ==
LOC: GOSHIMG 09:27
PROVIDERS: PCP Otolaryngology; Visit Provider Otolaryngology
DX: H93.A2 Pulsatile tinnitus, left ear (principal)
CPT/HCPCS: 70496; Q9967